=== PATIENT | male | born 1945 | race Caucasian/White ===

== ENCOUNTER 2021-09-02 15:19 | Emergency (ER) | payer MEDICARE, OTHER ==
[~2021-09-02] VITALS: Ht 170.2 cm; Wt 51.7 kg
[~2021-09-02 15:19] MED LIST: AIRDUO DIGIHAL1 EACH INH; ARTIFICIAL TEAR15 M6 OP; CLOPIDOGREL75 MG PO; CRESTOR20 MG PO; DICLO GEL1 EACH; DOCUSATE SODIU100 MG PO; FLOMAX0.4 MG PO; FLUTICASONE P15.8 ML NAS; GUAIFENESIN400 MG PO; HEPARIN SO5000 UNIT3 INJ; IRON325 M1 PO; LO-DOSE ASPIRIN81 M1 PO; METOPROLOL SUCC25 MG PO; POLYETHYLENE GLY1 GM MISC; PROAIR HFA8.5 GM; PROSTAT; TOPICAINE113 GM TOP; TYLENOL EXTRA500 MG PO; VITAMIN D325 MC2 PO
--- OUTSIDE RECORDS SUMMARY | 2021-09-02 15:22 | XMS ---
Silvia Notification: JEF SCOTT Security [employer] Events No recent Security Events currently on file CRITERIA MET - PDMP CARE PROVIDERS KAROLYN MCFADDEN Forging Engineer Current ZANA Fields PHONE: [phone] JOSUE LI Internal Medicine Current PHONE: Unknown LUIS TO Nurse Practitioner Current PHONE: [phone] ZENON PANDEY Nurse Practitioner: Family Current PHONE: Unknown EARLENE CARVALHO Internal Medicine Current PHONE: [phone] NEHEMIAS GILL Nurse Practitioner Current PHONE: [phone] [place] BING[place]AM I. Physician Photography Teacher Current PHONE: Unknown TOSHA [facility] Current PHONE: Unknown LUIS PHILLIPS [facility] Current PHONE: [phone] BRYAN CARRIZALES Current PHONE: Unknown [place] has no Care Guidelines for this patient. EAvani VISIT COUNT (12 MO.) 1 Chayito Sen 1 [facility] 2 [facility] TOTAL 4 NOTE: Visits indicate total known visits. ED/UCC VISIT TRACKING (12 MO.) 09/02/2021 15:20 [facility] [place] [place] TYPE: Emergency COMPLAINT: - CHEST PAIN 05/13/2021 10:14 [facility] TYPE: Emergency DIAGNOSES: - Unspecified open wound, right foot, initial encounter - Non-pressure chronic ulcer of unspecified part of right lower leg with unspecified severity - Centrilobular emphysema - Wound Check - Peripheral vascular disease, unspecified - Chronic kidney disease, stage 3a - Chronic diastolic (congestive) heart failure - Atherosclerotic heart disease of [place] coronary artery without angina pectoris - Encounter for preprocedural cardiovascular examination 05/13/2021 03:53 [facility] [place] TYPE: Emergency COMPLAINT: - FALL 09/25/2020 17:19 [place] TYPE: Emergency DIAGNOSES: - Hypo-osmolality and hyponatremia - Chronic kidney disease, stage 3 unspecified - Sore - Acquired absence of left leg above knee - Atherosclerotic heart disease of [place] coronary artery without angina pectoris - Dizziness - Other injury of unspecified body region, initial encounter - Anemia, unspecified - Abnormal Lab - Acute posthemorrhagic anemia - Acute kidney failure, unspecified - Personal history of pulmonary embolism - Essential (primary) hypertension - Unspecified open wound, right foot, initial encounter - Chronic obstructive pulmonary disease with (acute) exacerbation - prison (current) use of anticoagulants - Peripheral vascular disease, unspecified INPATIENT VISIT TRACKING (12 MO.) 06/08/2021 08:31 [facility] TYPE: Internal Medicine DIAGNOSES: - 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, initial encounter - Peripheral vascular disease, unspecified - 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, initial encounter 05/13/2021 10:14 [facility] TYPE: Internal Medicine DIAGNOSES: - Encounter for preprocedural cardiovascular examination - Atherosclerotic heart disease of [place] coronary artery without angina pectoris - Peripheral vascular disease, unspecified - Chronic kidney disease, stage 3a - Non-pressure chronic ulcer of unspecified part of right lower leg with unspecified severity - Chronic diastolic (congestive) heart failure - Centrilobular emphysema - Unspecified open wound, right foot, initial encounter [email or web address]
[2021-09-02] MEDS ORDERED: DULCOLAX10 MG PR (16:03)
[2021-09-02] MEDS ORDERED: LASIX20 MG PO (16:04)
[2021-09-02] MEDS ORDERED: NATURAL LAXATI8.6 MG PO (16:05)
[2021-09-02] MEDS ORDERED: ANORO ELLIPTA1 EACH INH (16:06)
[2021-09-02] MEDS ORDERED: GAS RELIEF80 MG PO (16:09)
[2021-09-02] MEDS ORDERED: VITAMIN C250 MG PO (16:10)
--- NOTE | 2021-09-05 17:08 | EKG ---
[facility] [address] [place] [address] Signed Poor data quality, interpretation may be adversely affected Normal sinus rhythm Cannot rule out Inferior infarct , age undetermined Abnormal ECG No previous ECGs available Confirmed by ALMA CASTLE MD ([id number]) on 09/05/2021 5:08:36 PM Electronically Signed By: ALMA CASTLE MD 09/05/21 1708 PATIENT NAME: JEF SCOTT Electrocardiogram DATE OF : 47 PHYSICIAN: ALMA CASTLE MD REPORT #: [id number] REPORT IS CONFIDENTIAL AND NOT TO BE RELEASED WITHOUT AUTHORIZATION
--- NOTE | 2021-09-05 17:09 | EKG ---
[facility] [address] [place] [address] Signed Normal sinus rhythm Normal ECG When compared with ECG of 02-SEP-2021 15:21, (Unconfirmed) Previous ECG has undetermined rhythm, needs review Confirmed by ALMA CASTLE MD ([id number]) on 09/05/2021 5:08:45 PM Electronically Signed By: ALMA CASTLE MD 09/05/21 1709 PATIENT NAME: JEF SCOTT Electrocardiogram DATE OF : 47 PHYSICIAN: ALMA CASTLE MD REPORT #: [id number] REPORT IS CONFIDENTIAL AND NOT TO BE RELEASED WITHOUT AUTHORIZATION
== END 2021-09-03 00:17 | disposition short-term general hospital (02) ==
LOC: ED 15:19
DX: E83.52 Hypercalcemia (principal); R79.89 Other specified abnormal findings of blood chemistry; J44.9 Chronic obstructive pulmonary disease, unspecified; E78.5 Hyperlipidemia, unspecified; R33.9 Retention of urine, unspecified; G47.30 Sleep apnea, unspecified; I50.9 Heart failure, unspecified; Z88.8 Allergy status to other drugs, medicaments and biological substances; Z79.899 Other long term (current) drug therapy; Z79.82 Long term (current) use of aspirin
CPT/HCPCS: 36415; 71045; 71260; 80053; 82310; 84484; 85025; 85379; 93005; 93010; 99285-25; A9270; C9803; J7030; J7040; Q9967; U0003